=== PATIENT | male | born 1985 | race Caucasian/White ===

== ENCOUNTER 2017-04-06 23:31 | Emergency (ER) | payer OTHER ==
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
== END 2017-04-07 00:43 | disposition home or self-care (01) ==
LOC: ER 23:31
DX: S80.211A Abrasion, right knee, initial encounter (principal); S50.811A Abrasion of right forearm, initial encounter; Z90.89 Acquired absence of other organs; Z23 Encounter for immunization; V29.3XXA Motorcycle rider (driver) (passenger) injured in unspecified nontraffic accident, initial encounter; Y92.480 Sidewalk as the place of occurrence of the external cause